=== PATIENT | male | born 1985 | race Caucasian/White ===

== ENCOUNTER 2021-05-27 10:05 | Emergency (ER) | payer BC, SELFPAY ==
--- NOTE | ~2021-05-27 | XR_ITS ---
EXAMINATION: [id number] DATE: 05/27/2021 10:42 INDICATION: Anterior and lateral right rib pain post fall TECHNIQUE: PA standing view of the chest and 3 views of the right ribs were obtained. COMPARISON: None FINDINGS: Nondisplaced fracture at the anterior right fifth, sixth and seventh ribs. Lungs are clear with no fo brad airspace opacities, pulmonary edema, pleural effusion or pneumothorax. Cardiomediastinal silhouet te is normal. IMPRESSION: 1. Nondisplaced anterior right fifth-seventh rib fractures. No acute cardiopulmonary disease. Reviewed, dictated and finalized at location A. [employer] INSPECTOR IMPRESSION: 1. Nondisplaced anterior right fifth-seventh rib fractures. No acute cardiopulm onary disease.
[2021-05-27 10:24] VITALS: BP 130/82; PULSE 86; RESP 16; TEMP 36.6; O2SAT 99
--- NOTE | 2021-05-27 11:00 | ED.FALL ---
HPI - Fall General Chief Complaint: Fall Stated Complaint: rib pain/fall Time Seen by Provider: 05/27/21 10:40 Source: patient and RN notes reviewed Mode of arrival: ambulatory Limitations: no limitations History of Present Illness HPI Narrative: Patient presents today complaining of right anterolateral rib pain after he fell down some stairs 2 days ago injuring his ribs. Currently rates his pain 7/10 and has tried no [id number] treatment prior to arrival. Pain increases with movement, deep breaths, laughing or coughing. Denies shortness of breath. MD complaint: fall and other (Rib pain) Related Data Home Medications Medication Instructions Recorded Confirmed cetirizine [Zyrtec] 10 mg PO DAILY 05/27/21 05/27/21 dextroamphetamine-amphetamine 30 mg PO DAILY 05/27/21 05/27/21 Allergies Allergy/AdvReac Type Severity Reaction Status Date / Time No Known Allergies Allergy Verified 05/27/21 10:26 Review of Systems Review of Systems: CONSTITUTIONAL: Denies body aches, fever, chills, or sweats. EYES: Denies visual changes, redness, or discharge. ENT: Denies rhinorrhea, congestion, sore throat, or otalgia. CARDIOVASCULAR: Denies chest pain, palpitations, or edema. RESPIRATORY: Denies cough or dyspnea. GASTROINTESTINAL: Denies abdominal pain, nausea, vomiting, or diarrhea. GENITOURINARY: Denies dysuria or hematuria. SKIN: Denies rash, itching, or wounds. MUSCULOSKELETAL: Denies back pain, joint pain, or myalgia.+ Rib pain NEUROLOGIC: Denies headache, numbness, tingling, or weakness. PSYCH: Denies depression or anxiety. PMFSH Comments At time of signature, I have reviewed and agree with nursing past medical, surgical, social and family history unless otherwise noted. Please see nursing chart for further information. There is no relevant family history pertinent to the presenting complaint Exam Narrative: GENERAL: Well-appearing, well-nourished, and in no acute distress. HEAD: Normocephalic, atraumatic. EYES: EOMI. No redness or drainage. Conjunctivae normal. ENT: Mucous membranes pink and moist. NECK: Normal AROM. CHEST: No respiratory distress. Clear to auscultation. Right mid anterior lateral rib pain with palpation. No deformity, ecchymosis, edema, or crepitus noted. HEART: Regular rate and rhythm. No murmur appreciated. Normal peripheral pulses. EXTREMITIES: Normal range of motion. No edema. SKIN: Warm, dry, no rash. Capillary refill normal. Normal skin turgor. NEURO: No focal deficits. Alert and oriented x3. Gait steady. PSYCH: Normal affect. No signs of depression or anxiety. Course Vital Signs Vital signs: Vital Signs Temperature 97.9 F 05/27/21 10:24 Pulse Rate 86 05/27/21 10:24 Respiratory Rate 16 05/27/21 10:24 Blood Pressure 130/82 05/27/21 10:24 Pulse Oximetry 99 05/27/21 10:24 Temperature 97.9 F 05/27/21 10:24 Pulse Rate 86 05/27/21 10:24 Respiratory Rate 16 05/27/21 10:24 Blood Pressure 130/82 05/27/21 10:24 Pulse Oximetry 99 05/27/21 10:24 Reviewed. Pt has been instructed to follow up with his PCP regarding his elevated blood pressure today. MDM - Fall Differential Diagnosis Differential diagnosis: Likely other (Rib fracture, chest contusion) Imaging Data Radiologist's impression: ITS Impressions Ribs w/Chest X-Ray 05/27/21 10:45 IMPRESSION: 1. Nondisplaced anterior right fifth-seventh rib fractures. No acute cardiopulmonary disease. Critical Care Time Critical Care Time Critical Care Time: No Discharge Plan Discharge Clinical Impression: Closed rib fracture Qualifiers: Encounter type: initial encounter Rib fracture type: multiple ribs Laterality: right Qualified Code(s): S22.41XA - Multiple fractures of ribs, right side, initial encounter for closed fracture Patient Disposition: Home, Self-Care Condition: Stable Instructions: Rib Fracture (ED) Additional Instructions: Your x-ray shows 3 broken ribs. T
== END 2021-05-27 11:07 | disposition home or self-care (01) ==
PROVIDERS: Emergency Provider Nurse Practitioner; PCP Hospitalist
DX: S22.41XA Multiple fractures of ribs, right side, initial encounter for closed fracture (principal); W10.9XXA Fall (on) (from) unspecified stairs and steps, initial encounter; F90.9 Attention-deficit hyperactivity disorder, unspecified type
CPT/HCPCS: 71101; 99213; G0463

== ENCOUNTER 2024-02-08 09:03 | Emergency (ER) | payer OTHER, SELFPAY ==
[2024-02-08 09:24] VITALS: BP 122/74; PULSE 69; RESP 16; TEMP 36.2; O2SAT 99
--- NOTE | 2024-02-08 09:28 | ED.EAR ---
HPI - Ear Problem General Chief complaint: Ear Stated complaint: LT Ear pain Time Seen by Provider: 02/08/24 09:28 Source: patient Mode of arrival: ambulatory Limitations: no limitations History of Present Illness HPI Narrative: 38-year-old male presented for complaint of left ear pain and pressure worsening for 2 days. States pain is worse at night when lying down. Endorses associated dizziness and bloody drainage from the ear, the ear feels clogged, and decreased hearing. Denies nausea, vomiting, diarrhea, fevers or chills. MD Complaint: ear pain Related Data Home Medications Medication Instructions Recorded Confirmed dextroamphetamine-amphetamine 30 30 mg PO DAILY 05/27/21 02/08/24 mg tablet Allergies Allergy/AdvReac Type Severity Reaction Status Date / Time No Known Allergies Allergy Verified 05/27/21 10:26 Review of Systems Review of Systems: CONSTITUTIONAL: Denies malaise, chills, or fever. EYES: Denies visual changes, redness, or discharge. ENT: Denies rhinorrhea, congestion, sinus pain, and sore throat. Reports ear pain CARDIOVASCULAR: Denies chest pain, palpitations, or edema. RESPIRATORY: Denies cough or dyspnea. GASTROINTESTINAL: Denies abdominal pain, nausea, vomiting, diarrhea SKIN: Denies rash or itching. MUSCULOSKELETAL: Denies myalgia. NEUROLOGIC: Denies headache. All systems reviewed & are unremarkable except as noted in HPI and below PMFSH Comments At time of signature, agree with nursing past medical, surgical, social and family history. There is no relevant family history pertinent to the presenting complaint Exam Narrative: GENERAL: Appears in pain, in no acute distress. EYES: PERRLA, conjunctivae clear ENT: mild nasal congestion Mucous membranes moist. Right TM pearly brennan with dull light reflex; left TM erythematous, bulging and intact with purulent effusion and bloody purulent drainage noted to the canal; canal not erythematous, no tragal tenderness NECK: Supple. No lymphadenopathy CHEST: Clear to auscultation, breath sounds equal. No wheezing, rhonchi, rales, or stridor. No respiratory distress, speaks in full sentences. HEART: Regular rate and rhythm. No murmur heard. SKIN: Warm, dry, no rash. NEURO: Alert and oriented x3. PSYCH: Normal mood and affect Course Course Emergency Course: Patient is aware of diagnosis, understands and agrees to treatment plan. Anticipatory guidance given. Patient agrees to follow-up as directed and is aware of reasons to seek care at the emergency department. Portions of this record may have been created with voice recognition software Level of Care: Express Care Visit Vital Signs Vital signs: Vital Signs Temperature 97.1 F L 02/08/24 09:24 Pulse Rate 69 02/08/24 09:24 Respiratory Rate 16 02/08/24 09:24 Blood Pressure 122/74 02/08/24 09:24 Pulse Oximetry 99 02/08/24 09:24 Oxygen Delivery Room Air 02/08/24 09:24 Temperature 97.1 F L 02/08/24 09:24 Pulse Rate 69 02/08/24 09:24 Respiratory Rate 16 02/08/24 09:24 Blood Pressure 122/74 02/08/24 09:24 Pulse Oximetry 99 02/08/24 09:24 Oxygen Delivery Room Air 02/08/24 09:24 Reviewed Medical Decision Making MDM Narrative Medical decision making narrative: Discussed physical exam findings consistent with left AOM, will also provide Ciprodex for possible TM rupture. Advised supportive measures and signs/symptoms to go to the ER. Patient is appropriate for outpatient treatment and follow-up. Differential Diagnosis Differential Diagnosis: Coronavirus, strep pharyngitis, allergic rhinitis, upper respiratory tract infection, sinusitis, rhinosinusitis, nasopharyngitis, viral pharyngitis, otitis media, otitis externa, eustachian tube dysfunction, foreign body, cerumen impaction. Vital Signs Vital Signs: Vital Signs Temperature 97.1 F L 02/08/24 09:24 Pulse Rate 69 02/08/24 09:24 Respiratory Rate 16 02/08/24 09:24 Blood Pressure 1
== END 2024-02-08 09:41 | disposition home or self-care (01) ==
PROVIDERS: Emergency Provider Nurse Practitioner Family; PCP Family Medicine
DX: H66.92 Otitis media, unspecified, left ear (principal); F90.9 Attention-deficit hyperactivity disorder, unspecified type
CPT/HCPCS: 99213; G0463